=== PATIENT | male | born 1955 | race African-American/Black ===

== ENCOUNTER 2023-07-19 12:31 | Emergency (ER) | payer MEDICARE ==
[~2023-07-19] VITALS: Ht 188 cm; Wt 104.0 kg
[2023-07-19 12:50] VITALS: TEMP 98.4; O2SAT 99
[2023-07-19 14:45] VITALS: BP 117/84; PULSE 84; RESP 20
[2023-07-19] MEDS ORDERED: OXYCODONE HCL/ACETAMINOPHEN 5/325MG TABLET PO ONE (14:45)
[2023-07-19] MEDS ORDERED: OXYC-100 MT ×3 (15:28→15:38)
[2023-07-19] MEDS ORDERED: HYDR-4001 MT (17:05)
== END 2023-07-19 16:16 | disposition home or self-care (01) ==
LOC: ER 12:31
DX: S63.502A Unspecified sprain of left wrist, initial encounter (principal); S39.012A Strain of muscle, fascia and tendon of lower back, initial encounter; E11.9 Type 2 diabetes mellitus without complications; I10 Essential (primary) hypertension; V49.60XA Unspecified car occupant injured in collision with unspecified motor vehicles in traffic accident, initial encounter; Y93.89 Activity, other specified; Y92.89 Other specified places as the place of occurrence of the external cause; Y99.8 Other external cause status
CPT/HCPCS: 72100; 73100; 99284